=== PATIENT | male | born 1985 | race Two or more races ===

== ENCOUNTER 2019-02-12 02:32 | Emergency (ER) | payer OTHER ==
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
[2019-02-12 03:43] VITALS: BP 161/86
== END 2019-02-12 03:49 | disposition home or self-care (01) ==
LOC: ED 02:32
DX: S01.112A Laceration without foreign body of left eyelid and periocular area, initial encounter (principal); V18.0XXA Pedal cycle driver injured in noncollision transport accident in nontraffic accident, initial encounter; Y93.55 Activity, bike riding; Y92.480 Sidewalk as the place of occurrence of the external cause
CPT/HCPCS: 12011; 99282